=== PATIENT | female | born 1955 | race Native Hawaiian/Other Pacific Islander ===

== ENCOUNTER 2019-03-13 11:00 | Emergency (ER) | payer MEDICAID, OTHER ==
[~2019-03-13] VITALS: Ht 154.9 cm; Wt 99.3 kg
[2019-03-13 13:49] VITALS: BP 135/78
== END 2019-03-13 13:49 | disposition home or self-care (01) ==
LOC: ER 11:08
DX: L03.114 Cellulitis of left upper limb (principal); Z88.1 Allergy status to other antibiotic agents; Z88.5 Allergy status to narcotic agent; Z88.8 Allergy status to other drugs, medicaments and biological substances